=== PATIENT | female | born 1995 | race Two or more races ===

== ENCOUNTER 2023-05-11 10:18 | Emergency (ER) | payer OTHER ==
[~2023-05-11] VITALS: Ht 172.7 cm; Wt 86.2 kg
[2023-05-11] MEDS ORDERED: PROTONIX20 MG (11:25)
[2023-05-11 12:47] LABS: HEMATOCRIT 41.9 % (36.0-45.00); MEAN CELL VOLUME 79.9 fL (80.00-100.00); MEAN CORPUSCULAR HEMOGLOBIN 26.6 pg (27.00-32.0); MEAN CORPUSCULAR HGB CONC 33.3 g/dl (32.0-36.0); PLATELET COUNT 364 K/uL (150-450); RED BLOOD COUNT 5.24 M/uL (4.00-6.00); RED CELL DISTRIBUTION WIDTH 13.8 % (11.5-14.5)
[2023-05-11 12:58] LABS: PH,URINE 5.5 (5.0-8.0); URINE APPEARANCE Clear; URINE BILIRRUBIN Negative (NEGATIVE); URINE BLOOD Small; URINE COLOR Yellow; URINE GLUCOSE Negative (NEGATIVE); URINE LEUKOCYTE Negative; URINE NITRATE Negative; URINE PROTEIN Negative (NEGATIVE); URINE UROBILINOGEN 0.2 E.U./dl
[2023-05-11 13:01] LABS: URINE BACTERIA 981.4 uL (0.0-1933); URINE EPITHELIAL CELLS 7.4 uL (0.0-38.8); URINE RBC 15.3 uL (0.0-20.8); URINE WBC 8.8 uL (0.0-23.2)
[2023-05-11 14:06] LABS: CALCIUM 9.1 mg/dL (8.5-10.1); CREATININE SERUM 0.64 mg/dL (0.55-1.02); GFR 113.06; POTASSIUM 3.58 mEq/L (3.5-5.1)
[2023-05-11] MEDS ORDERED: MIRALAX510 GM PO (17:03)
== END 2023-05-11 17:10 | disposition home or self-care (01) ==
LOC: ER 10:19
PROVIDERS: Emergency Medicine
DX: K59.00 Constipation, unspecified (principal)